=== PATIENT | female | born 1960 | race American Indian/Alaskan Native ===

== ENCOUNTER 2017-06-25 09:00 | Outpatient (CLI) | payer BC ==
--- NOTE | 2017-06-25 15:09 | XRay Report ---
XRAY LEFT KNEE 4 THREE VIEWS: 06/25/17 CLINICAL: Left knee pain. FINDINGS: Mild medial joint space osteoarthritis with narrowing of the joint space and tiny osteophytes. Slight widening of the lateral joint space. Mild patellofemoral joint osteoarthritis with tiny osteophytes. No fracture or dislocation.No joint effusion.Normal soft tissues. 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
== END 2017-06-25 09:01 | disposition home or self-care (01) ==
LOC: SPVIMAG 09:00
PROVIDERS: ATTEND Orthopaedic Surgery
DX: M17.12 Unilateral primary osteoarthritis, left knee (principal)